=== PATIENT | female | born 1985 | race Caucasian/White ===

== ENCOUNTER 2019-12-03 05:32 | Inpatient (IN) | payer BC, OTHER ==
[2019-12-03 06:16] VITALS: BMI 32.3
[2019-12-03] MEDS ORDERED: Famotidine/PF 20 mg/2ml Vial ONE (06:33)
[2019-12-03] MEDS ORDERED: Ondansetron PF 4 MG/2 ML Vial IVP PRN ×3 (06:36→11:15)
[2019-12-03] MEDS ORDERED: Promethazine HCl 25 MG/ML VIAL IM PRN ×2 (06:36→08:46)
[2019-12-03] MEDS ORDERED: hydrALAZINE 20 MG/ML VIAL SLOW IVP PRN ×2 (06:36→11:15)
[2019-12-03] MEDS ORDERED: Bicitra 30 ML UDCUP PO SCH (06:45)
[2019-12-03] MEDS ORDERED: CEFAZOLIN 2 GM in Premix Bag 1 BAG IVPB SCH (06:45)
[2019-12-03 06:46] LABS: Hemoglobin 10.7 g/dL (12.0-16.0); Mean Corpuscular HGB CONC 32.7 g/dL (32.0-36.0); Mean Corpuscular Hemoglobin 26.3 pg (27.0-31.0); Mean Corpuscular Volume 80.3 fL (78.0-98.0); Mean Platelet Volume 8.9 fL (7.4-10.4); Platelet Count 170 thou/uL (130-400); RBC Distribution Width 17.4 % (11.5-14.5); Red Blood Cell (RBC) Count 4.05 mill/uL (4.20-5.40); White Blood Cell (WBC) Count 8.9 thou/uL (4.8-10.8)
[2019-12-03] MEDS: Lactated Ringer's 1,000 ML IV SCH ×2 (06:55→16:13)
[2019-12-03 07:27] LABS: HBSAg Index 0.22 S/CO (0-0.99); Hep B Surf Ag Non-Reactive S/CO (NonReactive); Syphilis Antibody Nonreactive (Nonreactive); Syphilis Antibody Index 0.04 S/CO (<1.00 Non-Reactive)
[2019-12-03] MEDS ORDERED: Oxytocin 10 UNITS/ML VIAL ONE ×2 (07:53→08:32)
--- NOTE | 2019-12-03 08:11 | PDOC.LDHP ---
Labor and Delivery H&P Chief complaint: scheduled section HPI: Here for RCS #3 and RRS Current gestational age (weeks): 39 Due date: 12/10/19 Dating criteria: last menstrual period, first trimester ultrasound Grav: 4 Para: 2 OB History Details: previous CS x 2 Current complications: none Abnormal US findings: No Past Medical History: negative Current medications: pre- vitamins Previous surgical history: low tranverse CS (x2) Allergies/Adverse Reactions: Allergies Allergy/AdvReac Type Severity Reaction Status Date / Time PET DANDER Allergy Uncoded 12/03/19 06:06 Social history: none - Physical Exam Vital signs reviewed and normal: yes General: NAD Heart: RRR Lungs: CTAB Abdomen: gravid Extremeties: no edema FHT: category 1 - OB Labs Blood type: A RH: positive Antibody Screen: negative HIV: negative RPR: negative HEPSAg: negative 1 hour GCT: negative Rubella: immune - Assessment L&D Assessment: scheduled repeat section - Plan Plan: admit to L&D, anesthesia consult for pain management -: RCS w risk reducing salpingectomy today. Pt has been counseled in detail on risk and benefits of salpingectomy, aware of SE of permanent sterilization.
[2019-12-03] MEDS ORDERED: diphenhydrAMINE 50 MG/ML VIAL IVP PRN (08:46)
[2019-12-03] MEDS ORDERED: L&D-Morphine 4 MG/ML VIAL SLOW IVP PRN (08:46)
[2019-12-03] MEDS ORDERED: Naloxone HCl 0.4 mg/ml Vial IVP PRN ×2 (08:46)
[2019-12-03] MEDS ORDERED: HYDROmorphone 2 MG/ML VIAL SLOW IVP PRN (08:46)
[2019-12-03] MEDS ORDERED: Naloxone HCl 0.4 mg/ml Vial IV PRN (08:46)
[2019-12-03] MEDS ORDERED: Promethazine HCl 25 MG SUPP PR PRN (08:46)
[2019-12-03] MEDS ORDERED: Meperidine HCl/PF 25 MG/ML VIAL SLOW IVP PRN (08:46)
[2019-12-03] MEDS ORDERED: Ondansetron HCl/PF 4 MG/2 ML Vial IVP PRN (08:46)
[2019-12-03] MEDS ORDERED: Communication Order-Pharmacy FS SCH (09:00)
--- NOTE | 2019-12-03 09:03 | PDOC.OPDEL ---
OB Operative/Delivery Note Delivery Dr/Surgeon: Brian Assist: Dionisio Pre-Delivery Diagnosis: scheduled section Procedure/Post Delivery Dx: repeat low transverse CS Weeks gestation: 39 Anesthesia: spinal - Findings A Sex: male Weight: 8 lb 1 oz - 1 min: 9 - 5 min: 9 - Additional Findings/Plan Placenta delivered: spontaneous findings: low transverse hysterotomy without extension, normal uterus, normal tubes, normal ovaries Estimated blood loss: 500ml Compilations/Other Findings: risk reducing salpingectomy completed w procedure Post delivery plan: routine recovery
[2019-12-03] MEDS ORDERED: NS / Oxytocin 40 units/1000ml 1,000 ML ONE (09:42)
[2019-12-03] MEDS ORDERED: Ketorolac Tromethamine 30 MG/ML VIAL ONE ×2 (09:43→14:26)
[2019-12-03] MEDS ORDERED: EPHEDRINE 25 MG/5 ML SYRINGE ONE (09:43)
[2019-12-03] MEDS ORDERED: Metoclopramide HCl 10 MG/2 ML VIAL ONE (09:43)
[2019-12-03] MEDS ORDERED: Dexamethasone 20 MG/5 ML VIAL ONE (09:43)
[2019-12-03] MEDS ORDERED: Ondansetron PF 4 MG/2 ML Vial ONE (09:43)
[2019-12-03] MEDS ORDERED: PHENYLEPHRINE-NS 100 MCG/ML 10 ML SYRINGE ONE (09:43)
[2019-12-03] MEDS ORDERED: Meperidine HCl/PF 25 MG/ML VIAL ONE (10:22)
[2019-12-03] MEDS ORDERED: Bisacodyl 10 MG SUPP PR PRN (11:15)
[2019-12-03] MEDS ORDERED: diphenhydrAMINE 25 MG CAP PO PRN (11:15)
--- NOTE | 2019-12-03 14:39 | OP ---
DATE OF PROCEDURE: 12/03/2019 PREOPERATIVE DIAGNOSES: 1. A 34-year-old G4, P2-0-1-2 at 39 weeks. 2. Previous section x2. 3. Family history of cancer and desires risk reducing salpingectomy. 4. Satisfied parity. POSTOPERATIVE DIAGNOSES: 1. A 34-year-old G4, P2-0-1-2 at 39 weeks. 2. Previous section x2. 3. Family history of cancer and desires risk reducing salpingectomy. 4. Satisfied parity. PROCEDURE PERFORMED: Repeat low-transverse section with bilateral salpingectomy. INVESTIGATOR OPERATOR: Catherine Nichole MD COMPLICATIONS: None. ANESTHESIA: Spinal ESTIMATED BLOOD LOSS: 500 mL. OPERATIVE FINDINGS: 1. Minimal adhesive disease. 2. Normal-appearing uterus, tubes, and ovaries bilaterally. 3. Vigorous male , Apgars 9 and 9, weight 8 pounds 1 ounce to Nursery. 4. Fundus firm after delivery of placenta. 5. Surgical site is hemostatic. PROCEDURE IN DETAIL: The patient was taken back to the OR with IV fluids placed. Spinal anesthesia was obtained and the patient was placed in dorsal supine position with a left lateral tilt. Sidhu catheter was placed using sterile technique, and the patient received 2 g of Ancef IV. The abdomen was prepped and draped. The surgeons were gowned and gloved and the anesthesia was tested and found to be adequate. A Pfannenstiel skin incision was made with a scalpel. The skin incision was carried down through the subcutaneous tissue to the fascia. When the fascia was reached, it was incised in the midline and extended superolaterally using curved Harper scissors. Vicky clamps were placed at the superior border of the fascia, which was sharply and bluntly dissected off the rectus abdominis muscles. This was repeated inferiorly as well. The rectus muscles were in the midline. The peritoneum was entered and stretched. An Ra O retractor was placed into the peritoneal cavity for retraction, visualization, and protection of the wound. A bladder flap was created and the bladder was dissected away from the planned hysterotomy site. A low-transverse hysterotomy was made with a scalpel. The hysterotomy was stretched using the Gore maneuver and amniotomy was performed with clear fluid. The was delivered through the hysterotomy without difficulty. The nose and mouth were suctioned. The cord was doubly clamped and cut and the infant was handed off to special care nurse in attendance. Cord blood was collected. The placenta was delivered. The uterus was exteriorized, massaged to firm, and cleared of clot and debris with clean dry sponge. Uterus was returned to the abdominal cavity. The hysterotomy was inspected with no extension noted. The hysterotomy was reapproximated with Monocryl suture in a running locked fashion. After the hysterotomy was closed, it was inspected with hemostasis noted. The uterus was then exteriorized and the fallopian tubes were inspected and found to be normal. Normal-appearing ovaries were noted as well. Beginning on the patient's left side, a left complete salpingectomy was performed by elevating the fallopian tube away from the adnexa and uterus, ligating and transecting small vessels in the mesosalpinx. This was repeated on the patient's right side as well. After the salpingectomies were performed, the uterus was returned to the abdominal cavity. The uterus, hysterotomy, and paracolic gutters were irrigated and suctioned dry. Hysterotomy and areas of tubal removal were inspected with no bleeding noted. The Ra O retractor was removed from the abdominal cavity. The fascia and rectus muscles were inspected with no bleeding noted. The rectus fascia was reapproximated with PDS suture from corner to corner. Subcutaneous layer was reapproximated with plain gut suture and the skin was closed with 4-0 Monocryl. The skin was dressed with Dermabond dressing. The counts were correct. The patient tolerated the procedure and there were no complications. Job ID: [id number] [facility]
[2019-12-03] MEDS: Ibuprofen 800 MG TAB PO SCH ×2 (16:08→22:29)
[2019-12-03] MEDS: Simethicone Chewable 80 MG TAB PO PRN (16:14)
[2019-12-03] MEDS: Ketorolac Tromethamine 30 MG/ML VIAL IVP PRN (20:41)
[2019-12-03] MEDS: Docusate Calcium (SURFAK) 240 MG CAP PO SCH (21:45)
[2019-12-03] MEDS: Ferrous Sulfate 325 MG TAB PO SCH (21:45)
[2019-12-03] MEDS ORDERED: HYDROcodone/Acetaminophen 5/325 mg Tablet PO PRN (22:00)
[2019-12-04] MEDS: Ketorolac Tromethamine 30 MG/ML VIAL IVP PRN (02:40)
[2019-12-04 05:56] LABS: Hemoglobin 8.9 g/dL (12.0-16.0); Mean Corpuscular HGB CONC 31.6 g/dL (32.0-36.0); Mean Corpuscular Hemoglobin 25.9 pg (27.0-31.0); Mean Platelet Volume 8.4 fL (7.4-10.4); Platelet Count 145 thou/uL (130-400); RBC Distribution Width 17.5 % (11.5-14.5); Red Blood Cell (RBC) Count 3.42 mill/uL (4.20-5.40); White Blood Cell (WBC) Count 8.9 thou/uL (4.8-10.8)
--- NOTE | 2019-12-04 06:53 | PDOC.PP ---
Post Progress Note Post Day #: 1 Subjective: Ate 4 crackers this AM. Feeling okay right now. Sidhu taken out this AM. PO intake tolerated: no Flatus: no Ambulation: no Vital Signs (12 hours) Temp Pulse Resp BP Pulse Ox 12/04/19 05:20 98.0 F 67 16 98/49 L 12/03/19 23:20 97.9 F 62 16 111/53 L 12/03/19 20:40 98.3 F 62 16 103/51 L 97 Weight Weight 72.575 kg - Physical Examination General: NAD Cardiovascular: no m/r/g, RRR Respiratory: clear to auscultation bilaterally, non-labored breathing Abdominal: + bowel sounds, no distention, appropriately TTP Fundus firm & at: level of umbilicus Deviation from normal: SCDs on while in bed, no pedal edema Skin: no rash (dressing not disturbed today) Neurological: no gross focal deficits Psychiatric: A&Ox3 Result Diagrams: 12/04/19 05:16 Additional Labs: Post Labs Hep Bs Antigen Non-Reactive S/CO (NonReactive) 12/03/19 06:33 Blood Type A POSITIVE 12/03/19 07:23 - Assessment/Plan 34 yo G4 now P3013 at 39 wga: POD #1 s/p RLTCS and RRS - routine postop cares - postop hgb stable - breakfast and oral pain meds this morning - encourage ambulation - remove dressing later today/tomorrow w/ shower and examine incision Dispo: inpatient, today. Addendum - Attending - Attending Attestation Date/Time: 12/04/19 2722 I personally evaluated the patient and discussed the management with Dr. Back. I agree with the History, Examination, Assessment and Plan documented above.
[2019-12-04] MEDS: Prenatal Vitamin 1 TAB PO SCH (08:25)
[2019-12-04] MEDS: Ferrous Sulfate 325 MG TAB PO SCH ×2 (08:25→21:03)
[2019-12-04] MEDS: Docusate Calcium (SURFAK) 240 MG CAP PO SCH ×2 (08:25→21:02)
[2019-12-04] MEDS: HYDROcodone/Acetaminophen 5/325 mg Tablet PO PRN ×2 (08:31→17:45)
[2019-12-04] MEDS: Ibuprofen 800 MG TAB PO SCH ×3 (10:43→21:02)
[2019-12-04] MEDS ORDERED: Adacel (T-DAP) 0.5 ML SYRINGE IM ONE (11:15)
[2019-12-04] MEDS: Simethicone Chewable 80 MG TAB PO PRN (15:17)
[2019-12-05] MEDS: HYDROcodone/Acetaminophen 5/325 mg Tablet PO PRN (02:11)
[2019-12-05] MEDS: Ibuprofen 800 MG TAB PO SCH (05:47)
[2019-12-05 06:08] VITALS: TEMP 98.2
--- NOTE | 2019-12-05 06:10 | PDOC.PP ---
Post Progress Note Post Day #: 2 Subjective: Doing well, would like to go home today PO intake tolerated: yes Flatus: yes Ambulation: yes Vital Signs (12 hours) Temp Pulse Resp BP Pulse Ox 12/05/19 05:50 98.2 F 72 18 124/64 99 12/04/19 23:20 98.5 F 64 18 122/56 L 98 12/04/19 20:53 98.2 F 80 18 115/58 L 98 Weight Weight 160 lb Past vitals reviewed - Physical Examination General: NAD Cardiovascular: no m/r/g Respiratory: non-labored breathing Abdominal: lochia, no distention, appropriately TTP Extremities: negative homans (B) Skin: CS incision dry & intact (sutured), no rash Neurological: no gross focal deficits Psychiatric: A&Ox3, normal affect Result Diagrams: 12/04/19 05:16 Additional Labs: Post Labs Hep Bs Antigen Non-Reactive S/CO (NonReactive) 12/03/19 06:33 Blood Type A POSITIVE 12/03/19 07:23 (1) delivery delivered Code(s): O82 - ENCOUNTER FOR DELIVERY WITHOUT INDICATION Status: Acute (2) Status post bilateral salpingectomy Code(s): Z90.79 - ACQUIRED ABSENCE OF OTHER GENITAL ORGAN(S) Status: Acute - Assessment/Plan POD 2 doing well...ok for home today. Follow up as scheduled.
[2019-12-05] MEDS: Ferrous Sulfate 325 MG TAB PO SCH (09:13)
[2019-12-05] MEDS: Prenatal Vitamin 1 TAB PO SCH (09:13)
[2019-12-05] MEDS: Docusate Calcium (SURFAK) 240 MG CAP PO SCH (09:14)
[2019-12-05 09:40] VITALS: BP 111/58
--- NOTE | 2019-12-07 05:33 | PQF ---
CLINICAL DOCUMENTATION CLARIFICATION FORM: Dear : Seng Torres Date / Time: 12/07/19 0532 Please exercise your independent, professional judgment in responding to the clarification form. Clinical indicators are provided on the bottom of this form for your review Please check appropriate box(es): [ x ] Associated Diagnosis: Acute blood loss anemia [ ] Abnormal laboratory findings not clinically significant [ ] Other diagnosis [ ] Unable to determine In addition, please specify: Present on Admission (POA): [ x ] Yes [ ] No [ ] Unable to determine Physician Signature: Date/Time: For continuity of documentation, please document condition throughout progress notes and discharge summary. Thank You. To be completed by CDI/Coding staff for physician review: Present Clinical Indicators - Signs / Symptoms / Labs Results and Location in Medical Record [X] RBC 4.05, Hgb 10.7, Hct 32.6 Laboratory 12/02 [X] RBC 3.42, Hgb 8.9, Hct 28.0 Laboratory 12/03 [X] BP116/61, Pulse 67, Resp 18, Temp 97.8 Vital signs 12/02 [X] Estimated blood loss: 500 ml Operative report 12/02 Present Risk Factors Results and Location in Medical Record [X] 39 weeks IUP Operative report 12/02 [X] s/p low CS Operative report 12/02 Present Treatments Results and Location in Medical Record [X] Series of Hgb and Hct labs Laboratory 12/02 [X] Lactated Ringers 1L MAY 10 [X] Ferrous Sulfate 325 mg oral MAY 10 [facility] [place] Signature: Angelica Kaur Phone #: ext [phone] Date/Time: 12/07/2019 0532 This is a permanent part of the Medical Record [facility]
== END 2019-12-05 12:40 | disposition home or self-care (01) | DRG 784 ==
LOC: L&D 05:32 → 3SW 15:40
PROVIDERS: ADMIT Obstetrics & Gynecology; ATTEND Obstetrics & Gynecology
PROC: 10D00Z1 Extraction of Products of Conception, Low, Open Approach (ICD-10-PCS; principal; 2019-12-03)
PROC: 0UT70ZZ Resection of Bilateral Fallopian Tubes, Open Approach (ICD-10-PCS; 2019-12-03)
DX: O34.211 Maternal care for low transverse scar from previous cesarean delivery (principal); D62 Acute posthemorrhagic anemia; Z3A.39 39 weeks gestation of pregnancy; Z30.2 Encounter for sterilization; Z37.0 Single live birth; O99.02 Anemia complicating childbirth
CPT/HCPCS: 36415; 51702; 85027; 86780; 86850; 86900; 86901; 87340; 88302; J0690; J1100; J1885; J2175; J2270; J2310; J2405; J2550; J2765; S0028

== ENCOUNTER 2020-06-15 20:51 | Emergency (ER) | payer OTHER ==
[2020-06-15 22:11] LABS: Bilirubin Negative (Negative); Blood, Urine Negative (Negative); Clarity Clear (Clear); Glucose, Urine (Dipstick) Normal (Negative); Ketone, Urine Negative (Negative); Leukocyte Negative Leu/uL (Negative); Nitrite Negative (Negative); Protein, Urine (Dipstick) Negative (Neg-Trace); Specific Gravity, Urine 1.019 (1.002-1.036); Urobilinogen Normal mg/dL (Less than 2)
[2020-06-15 22:40] LABS: #Basophils 0.1 thou/uL (0.0-0.2); #Eosinphils 0.4 thou/uL (0.0-0.7); #Monocytes 0.4 thou/uL (0.11-0.59); #Neutrophils 3.6 thou/uL (1.40-6.50); %Basophils 0.8 % (0.0-1.0); %Lymphocytes 39.9 % (21.0-51.0); %Monocytes 5.6 % (0.0-10.0); %Neutrophils 48.7 % (42.0-75.0); Hemoglobin 13.5 g/dL (12.0-16.0); Mean Corpuscular HGB CONC 32.3 g/dL (32.0-36.0); Mean Corpuscular Hemoglobin 29.8 pg (27.0-31.0); Mean Corpuscular Volume 92.4 fL (78.0-98.0); Mean Platelet Volume 7.7 fL (7.4-10.4); Platelet Count 199 thou/uL (130-400); RBC Distribution Width 10.9 % (11.5-14.5); Red Blood Cell (RBC) Count 4.55 mill/uL (4.20-5.40); White Blood Cell (WBC) Count 7.5 thou/uL (4.8-10.8)
[2020-06-15 23:00] LABS: ALT (SGPT) 12 U/L (8-55); AST (SGOT) 14 U/L (5-34); Albumin 4.3 g/dL (3.5-5.0); Alkaline Phosphatase 70 U/L (40-110); Anion Gap 13 mmol/L (10-20); BUN (Urea Nitrogen) 14 mg/dL (7.0-18.7); Bilirubin, Total 0.3 mg/dL (0.2-1.2); Calc. Creatinine Clearance 0 mL/min (70-130); Calcium 9.1 mg/dL (7.8-10.44); Carbon Dioxide 24 mmol/L (22-29); Chloride 106 mmol/L (98-107); Globulin 2.7 g/dL (2.4-3.5); Glucose 81 mg/dL (70-105); Lipase 48 U/L (8-78); Potassium 3.8 mmol/L (3.5-5.1); Sodium 139 mmol/L (136-145)
[2020-06-15 23:24] LABS: BHCG - Serum Negative (NEGATIVE); Pregs Control Background? CLEAR/WHITE (CLR/WHITE); Pregs Control Bar Appear? YES (CONTROL BAR)
== END 2020-06-15 23:49 | disposition home or self-care (01) ==
LOC: ERS 20:51
DX: R10.84 Generalized abdominal pain (principal); R10.33 Periumbilical pain
CPT/HCPCS: 36415; 80053; 81003; 83690; 84703; 85025; 99284